=== PATIENT | female | born 1985 | race Caucasian/White ===

== ENCOUNTER → 2019-04-26 | Outpatient (CLI) | payer BC ==
[~2019-04-26] MED LIST: LIDOCAINE/PRILOCAINE 2.5-2.5% KIT ONE; SUGAMMADEX SODIUM 200 MG/2 ML VIAL IV ONE
== END ==
LOC: WCC 04-21 14:05
PROVIDERS: ATTEND Family Medicine
DX: T81.89XS Other complications of procedures, not elsewhere classified, sequela (principal); M96.89 Other intraoperative and postprocedural complications and disorders of the musculoskeletal system
CPT/HCPCS: 87071; 87075; 87186; 87205

== ENCOUNTER → 2019-05-01 | Outpatient (CLI) | payer BC | LOC: WCC 10:24 | PROVIDERS: ATTEND Family Medicine | DX: T81.89XS Other complications of procedures, not elsewhere classified, sequela (principal); M96.89 Other intraoperative and postprocedural complications and disorders of the musculoskeletal system; B96.89 Other specified bacterial agents as the cause of diseases classified elsewhere; B95.2 Enterococcus as the cause of diseases classified elsewhere ==